=== PATIENT | male | born 1970 | race Caucasian/White ===

== ENCOUNTER 2022-01-23 11:27 | Inpatient (IN) | payer BC, MEDICAID ==
[~2022-01-23] VITALS: Ht 167.6 cm; Wt 85.9 kg
[~2022-01-23 11:27] MED LIST: METF-81 PO; humalog; lantus; losartan
[2022-01-23] MEDS ORDERED: DULA0.75 SQ (11:53)
[2022-01-23] MEDS ORDERED: LUMA42CA PO (11:53)
[2022-01-23] MEDS ORDERED: LOSA-382 PO (11:57)
[2022-01-23] MEDS ORDERED: INSU100V SQ (11:57)
[2022-01-23] MEDS ORDERED: INSLAN SQ (11:57)
[2022-01-23] MEDS ORDERED: LORazepam 2 MG TABLET PO PRN (15:15)
[2022-01-23] MEDS ORDERED: ZOLPIDEM TARTRATE 10 MG TABLET PO PRN (15:15)
[2022-01-23] MEDS ORDERED: HALOPERIDOL 5 MG TABLET PO PRN (15:15)
[2022-01-23 16:01] LABS: BASOPHILS % (AUTO) 0.3 % (0.0-2.0); HEMATOCRIT 40.6 % (41-53); HEMOGLOBIN 13.3 g/dL (13.5-17.5); LYMPHOCYTES # (AUTO) 3.5 K/uL (1.0-4.8); LYMPHOCYTES % (AUTO) 36.4 % (22.0-44.0); MEAN CORPUSCULAR HEMOGLOBIN 28.1 pg (26.0-34.0); MEAN CORPUSCULAR HGB CONC 32.7 G/dL (31.0-37.0); MEAN CORPUSCULAR VOLUME 86 fL (80-100); MONOCYTES % (AUTO) 10.5 % (2.0-9.0); NEUTROPHILS # (AUTO) 4.9 K/uL (1.8-7.7); NEUTROPHILS % (AUTO) 50.8 % (40.0-70.0); PLATELET COUNT (AUTO) 305 K/uL (150-450); RED BLOOD CELL COUNT(AUTO) 4.74 MIL/uL (4.50-5.90); RED CELL DISTRIBUTION WIDTH 13.8 % (11.5-14.5)
[2022-01-23 16:06] LABS: AMPHET/METH SCREEN,URINE NEGATIVE (NEGATIVE); BARBITURATE SCREEN, URINE NEGATIVE (NEGATIVE); BENZODIAZEPINES SCREEN,URINE NEGATIVE (NEGATIVE); CANNABINOID SCREEN,URINE NEGATIVE (NEGATIVE); COCAINE SCREEN,URINE NEGATIVE (NEGATIVE); METHADONE SCREEN, URINE NEGATIVE (NEGATIVE); OPIATE SCREEN,URINE NEGATIVE (NEGATIVE)
[2022-01-23 16:11] LABS: ALANINE AMINOTRANSFERASE 22 U/L (12-78); ALBUMIN 3.8 g/dL (3.4-5.0); ALKALINE PHOSPHATASE 44 U/L (46-116); ANION GAP 10 mmol/L (8-16); ASPARTATE AMINOTRANSFERASE 11 U/L (15-37); BILIRUBIN,TOTAL 0.8 mg/dL (0.1-1.0); CALCIUM, TOTAL 9.3 mg/dL (8.8-10.5); CARBON DIOXIDE 27 mmol/L (22-29); CHLORIDE 95 mmol/L (98-107); CREATININE 1.81 mg/dL (0.60-1.30); POTASSIUM 3.7 mmol/L (3.5-5.1); SODIUM SERUM 132 mmol/L (136-145); TOTAL PROTEIN, SERUM 7.4 g/dL (6.4-8.2); UREA NITROGEN, BLOOD 54 mg/dL (7-18)
[2022-01-23 16:12] LABS: GLOMERULAR FILTR. RATE CALC 40 mL/min (>60)
[2022-01-23 16:17] LABS: GLUCOSE,RANDOM 225 mg/dL (70-110)
[2022-01-23 16:18] LABS: APPEARANCE,URINE CLEAR (CLEAR); GLUCOSE, URINE (UA) 300-500 mg/dL (NEGATIVE); KETONES,URINE NEGATIVE (NEGATIVE); LEUKOCYTE ESTERASE ,URINE NEGATIVE (NEGATIVE); NITRATE,URINE NEGATIVE (NEGATIVE); OCCULT BLOOD,URINE NEGATIVE (NEGATIVE); PROTEIN,URINE TRACE mg/dL (NEGATIVE); SPECIFIC GRAVITIY, URINE 1.026 (1.003-1.030); UROBILINOGEN,URINE <=1.0 mg/dL (<=1.0)
[2022-01-23 16:19] LABS: BILIRUBIN,URINE SMALL (NEGATIVE)
[2022-01-23 16:21] LABS: PHENCYCLIDINE SCREEN,URINE NEGATIVE (NEGATIVE)
[2022-01-23 16:32] LABS: COVID AG,FIA SOURCE NASOPHARYNGEAL
[2022-01-23 16:36] LABS: BACTERIA,URINE None Seen /HPF (None Seen); RBC,URINE None Seen /HPF (0-2); WBC,URINE 0-2 /HPF (0-5)
[2022-01-23] MEDS ORDERED: INSULIN REGULAR, HUMAN 100 UNITS/ML IVP ONE (18:15)
[2022-01-23] MEDS ORDERED: SODIUM CHLORIDE 0.9% 2,000 ML IV ONE (18:15)
[2022-01-23 18:31] LABS: GLUCOMETER DEV NAME(LOC) ERT.5; GLUCOSE,POINT OF CARE 213 MG/DL (70-110)
[2022-01-23 20:45] LABS: CALCIUM, TOTAL 8.3 mg/dL (8.8-10.5); CREATININE 1.53 mg/dL (0.60-1.30); POTASSIUM 3.9 mmol/L (3.5-5.1)
[2022-01-23] MEDS ORDERED: DEXTROSE 50%-WATER 25 GM/50 ML SYRINGE IVP PRN (21:15)
[2022-01-23] MEDS: INSULIN LISPRO 100 UNITS/ML SQ PRN (21:41)
[2022-01-23 21:51] LABS: GLUCOMETER DEV NAME(LOC) 3E.I 2; GLUCOSE,POINT OF CARE 317 MG/DL (70-110)
[2022-01-23 22:45] VITALS: BP 140/98
[2022-01-23] MEDS ORDERED: ALBUTEROL SULFATE HFA 90 MCG/PUFF 8 GM INHALER IH PRN (23:30)
[2022-01-23] MEDS ORDERED: DOCUSATE SODIUM 100 MG CAPSULE PO PRN (23:30)
[2022-01-23] MEDS ORDERED: GuaiFENesin/D-METHORPHAN [SUGAR-FREE] 200-20MG/10 ML SYRUP UDCUP PO PRN (23:30)
[2022-01-23] MEDS ORDERED: MAGNESIUM HYDROXIDE SUSPENSION 30 ML UDCUP PO PRN (23:30)
[2022-01-23] MEDS ORDERED: MAG HYDROX/AL HYDROX/SIMETH ES 30 ML SUSPENSION UDCUP PO PRN (23:30)
[2022-01-23] MEDS ORDERED: CloNIDine HCL 0.1 MG TABLET PO PRN (23:30)
[2022-01-23] MEDS ORDERED: ACETAMINOPHEN 325 MG TABLET PO PRN (23:30)
[2022-01-23] MEDS ORDERED: LOPERAMIDE HCL 2 MG CAPSULE PO PRN (23:30)
[2022-01-23] MEDS ORDERED: ONDANSETRON HCL 4 MG TABLET PO PRN (23:30)
[2022-01-23] MEDS ORDERED: PETROLATUM,WHITE 28 GM JELLY TP PRN (23:30)
[2022-01-23] MEDS ORDERED: IBUPROFEN 400 MG TABLET PO PRN (23:30)
[2022-01-24 05:41] LABS: GLUCOMETER DEV NAME(LOC) 3E.I 2; GLUCOSE,POINT OF CARE 201 MG/DL (70-110)
[2022-01-24] MEDS: INSULIN LISPRO 100 UNITS/ML SQ PRN ×4 (06:42→22:01)
[2022-01-24 08:43] VITALS: BP 164/96
[2022-01-24] MEDS: METOPROLOL TARTRATE 25 MG TABLET PO SCH ×2 (10:07→17:04)
[2022-01-24 10:55] LABS: BASOPHILS % (AUTO) 0.5 % (0.0-2.0); EOSINOPHILS % (AUTO) 1.7 % (1.0-6.0); HEMOGLOBIN 13.3 g/dL (13.5-17.5); LYMPHOCYTES # (AUTO) 1.8 K/uL (1.0-4.8); LYMPHOCYTES % (AUTO) 29.8 % (22.0-44.0); MEAN CORPUSCULAR HEMOGLOBIN 28.5 pg (26.0-34.0); MEAN CORPUSCULAR HGB CONC 33.2 G/dL (31.0-37.0); MEAN CORPUSCULAR VOLUME 86 fL (80-100); MONOCYTES # (AUTO) 0.5 K/uL (0.1-1.0); MONOCYTES % (AUTO) 7.5 % (2.0-9.0); NEUTROPHILS # (AUTO) 3.7 K/uL (1.8-7.7); NEUTROPHILS % (AUTO) 60.5 % (40.0-70.0); PLATELET COUNT (AUTO) 286 K/uL (150-450); RED BLOOD CELL COUNT(AUTO) 4.65 MIL/uL (4.50-5.90); RED CELL DISTRIBUTION WIDTH 13.3 % (11.5-14.5)
[2022-01-24 11:00] LABS: HEMOGLOBIN A1C 8.4 % (3.8-5.6)
[2022-01-24 11:50] LABS: ALANINE AMINOTRANSFERASE 25 U/L (12-78); ALBUMIN 3.7 g/dL (3.4-5.0); ALKALINE PHOSPHATASE 54 U/L (46-116); ANION GAP 15 mmol/L (8-16); ASPARTATE AMINOTRANSFERASE 11 U/L (15-37); BILIRUBIN,TOTAL 0.7 mg/dL (0.1-1.0); CALCIUM, TOTAL 8.6 mg/dL (8.8-10.5); CARBON DIOXIDE 28 mmol/L (22-29); CHLORIDE 98 mmol/L (98-107); CHOL/HDL RATIO 5.7 (4.2-7.3); CHOLESTEROL 177 mg/dL (131-200); CREATININE 1.15 mg/dL (0.60-1.30); GLOMERULAR FILTR. RATE CALC > 60 mL/min (>60); GLUCOSE,RANDOM 316 mg/dL (70-110); HDL CHOLESTEROL 31 mg/dL (40-60); LDL CHOL (CALC.) 110 mg/dL (0-130); POTASSIUM 4.5 mmol/L (3.5-5.1); SODIUM SERUM 141 mmol/L (136-145); THYROID STIMULATING HORMONE 1.82 uIU/mL (0.36-3.74); TOTAL PROTEIN, SERUM 7.2 g/dL (6.4-8.2); TRIGLYCERIDES 180 mg/dL (15-150); UREA NITROGEN, BLOOD 32 mg/dL (7-18)
[2022-01-24 13:10] LABS: GLUCOMETER DEV NAME(LOC) 3E.I 2; GLUCOSE,POINT OF CARE 283 MG/DL (70-110)
[2022-01-24 16:00] VITALS: BP 160/94
[2022-01-24 16:25] LABS: GLUCOMETER DEV NAME(LOC) 3E.I 2; GLUCOSE,POINT OF CARE 295 MG/DL (70-110)
[2022-01-24] MEDS: MetFORMIN HCL 500 MG ER TABLET PO SCH (18:43)
[2022-01-24] MEDS: APIXABAN 5 MG TABLET PO SCH (18:43)
[2022-01-24] MEDS ORDERED: FAMOTIDINE 20 MG TABLET PO SCH (21:00)
[2022-01-24] MEDS ORDERED: OLANZapine 10 MG TABLET PO SCH (21:00)
[2022-01-24] MEDS ORDERED: PARoxetine HCL 20 MG TABLET PO SCH (21:00)
[2022-01-24 21:31] LABS: GLUCOMETER DEV NAME(LOC) 3E.I 2; GLUCOSE,POINT OF CARE 275 MG/DL (70-110)
[2022-01-24] MEDS: INSULIN GLARGINE,HUM.REC.ANLOG 100 UNITS/ML SQ SCH (21:58)
[2022-01-25 06:36] LABS: GLUCOMETER DEV NAME(LOC) 3E.I 2; GLUCOSE,POINT OF CARE 215 MG/DL (70-110)
[2022-01-25] MEDS: MetFORMIN HCL 500 MG ER TABLET PO SCH (06:38)
[2022-01-25] MEDS: INSULIN LISPRO 100 UNITS/ML SQ PRN ×2 (06:41→11:54)
[2022-01-25] MEDS ORDERED: MetFORMIN HCL 500 MG ER TABLET PO SCH (07:30)
[2022-01-25 08:00] VITALS: BP 131/68
[2022-01-25] MEDS ORDERED: ASPIRIN 81 MG CHEWABLE TABLET PO SCH (09:00)
[2022-01-25] MEDS ORDERED: METOPROLOL TARTRATE 50 MG TABLET PO SCH (09:00)
[2022-01-25] MEDS ORDERED: FENOFIBRATE 160 MG TABLET PO SCH (09:00)
[2022-01-25] MEDS ORDERED: CLOPIDOGREL BISULFATE 75 MG TABLET PO SCH (09:00)
[2022-01-25] MEDS: APIXABAN 5 MG TABLET PO SCH (09:13)
[2022-01-25] MEDS: INSULIN GLARGINE,HUM.REC.ANLOG 100 UNITS/ML SQ SCH (09:32)
[2022-01-25] MEDS ORDERED: OLAN10 PO (10:23)
[2022-01-25] MEDS ORDERED: PARO-37 PO (10:23)
[2022-01-25] MEDS ORDERED: APIX5TAB PO (10:49)
[2022-01-25] MEDS ORDERED: METO50 PO (10:49)
[2022-01-25] MEDS ORDERED: CLOP75TA60 PO (10:49)
[2022-01-25] MEDS ORDERED: ASPI81 PO (10:49)
[2022-01-25] MEDS ORDERED: INSLAN SQ (10:49)
[2022-01-25] MEDS ORDERED: FENO160T75 PO (10:49)
[2022-01-25] MEDS ORDERED: METF-81 PO (10:49)
[2022-01-25 11:46] LABS: GLUCOMETER DEV NAME(LOC) 3E.I 2; GLUCOSE,POINT OF CARE 229 MG/DL (70-110)
== END 2022-01-25 14:20 | disposition home or self-care (01) | DRG 750 ==
LOC: EMS 11:27 → 3EI 18:18
PROVIDERS: ADMIT Psychiatry & Neurology Child & Adolescent Psychiatry; ATTEND Psychiatry & Neurology Child & Adolescent Psychiatry
DX: F25.0 Schizoaffective disorder, bipolar type (principal); R45.851 Suicidal ideations; E86.0 Dehydration; E11.65 Type 2 diabetes mellitus with hyperglycemia; E78.00 Pure hypercholesterolemia, unspecified; D64.9 Anemia, unspecified; I10 Essential (primary) hypertension; J44.9 Chronic obstructive pulmonary disease, unspecified; F32.A Depression, unspecified; Z20.822 Contact with and (suspected) exposure to COVID-19; F41.9 Anxiety disorder, unspecified; Z79.899 Other long term (current) drug therapy; Z86.16 Personal history of COVID-19; Z91.041 Radiographic dye allergy status; Z91.040 Latex allergy status
CPT/HCPCS: 80048; 80053; 80061; 81001; 81003; 82962; 83036; 84443; 85025; 99285; G0480; J1815; J7030